=== PATIENT | male | born 1930 | race Caucasian/White ===

== ENCOUNTER → 2016-06-02 | Outpatient (REF) ==
[~2016-06-02] MED LIST: ASPIR-LOW81 MG PO; ASPIRIN E.C. 8181 MG PO; CARDIZEM 60MG T60 MG PO; CENTRUM SILVER1 TA1 PO; ENSURE SUPPLEMENT; FISH OIL CONC1000 MG PO; LEVOTHYROXINE0.1 MG PO; LIPITOR 10MG10 MG PO; LOPRESSOR 225 MG/TAB PO; MONODOX100 PO; NIACIN 250250 MG/CAP PO; NIACIN TIME RE500 MG PO; NIACIN TIME-RE500 MG PO; PLAVIX 75MG TAB75 MG PO; PROSCAR PO; SYNTHROID0.1 MG/TAB PO; [UNRECOGNIZED DRUG - OTHER] PO
== END ==
LOC: ZLAB.WCH 10:45
DX: Z01.89 Encounter for other specified special examinations (principal)

== ENCOUNTER 2020-08-24 12:14 | Day surgery (SDC) | payer MEDICARE, BC ==
[2020-08-24] VITALS (10 sets, daily range): BP systolic 104–166; BP diastolic 55–90; PULSE 61–93; TEMP 97.9
[~2020-08-24] VITALS: Ht 167.6 cm; Wt 68.1 kg
[2020-08-24 13:19] LABS: HEMATOCRIT 39.1 % (42.0-52.0); MEAN CELL VOLUME 96 fl (80.0-100.0); MEAN CORPUSCULAR HEMOGLOBIN 32 pg (27.0-31.0); MEAN CORPUSCULAR HGB CONC 33 g/dl (33.0-37.0); MEAN PLATELET VOLUME 10.8 fl (7.4-10.4); PLATELET COUNT 148 K/mm3 (130-400); RED BLOOD COUNT 4.07 M/mm3 (4.20-5.60); REDCELL DISTRIBUTION WIDTH-CV 12.9 % (11.5-14.5)
[2020-08-24 13:24] LABS: INR 1.2 (0.8-3.0); PROTHROMBIN TIME 13.3 SECONDS (9.7-12.8)
[2020-08-24 13:26] LABS: CALCIUM 8.5 mg/dL (8.4-10.2); CREATININE, serum 1.94 (0.66-1.25); PARTIAL THROMBOPLASTIN TIME 30.2 SECONDS (26.0-37.0); POTASSIUM 4.8 mmol/L (3.4-5.0)
[2020-08-24] MEDS ORDERED: SYNTHROID0.1 MG/TAB PO (13:31)
[2020-08-24] MEDS ORDERED: TOPROL XL 25MG25 MG PO (13:31)
[2020-08-24] MEDS ORDERED: PEPCID40 MG PO (13:32)
[2020-08-24] MEDS ORDERED: COUMADIN 5MG5 MG/TAB PO (13:36)
[2020-08-24] MEDS ORDERED: LIPITOR 10MG10 MG PO (13:36)
[2020-08-24] MEDS ORDERED: NEURONTIN100 MG/CAP PO (13:37)
[2020-08-24] MEDS ORDERED: FLOMAX 0.40.4 MG/CAP PO (13:37)
--- NOTE | 2020-08-24 22:09 | NUR ---
BACK FROM [facility] AT APPROX 1900. PT IS AWAKE AND ALERT, PWD, RESP UNLABORED. TR BAND TO RT WRIST, CMS INTACT. DINNER ORDERED. TELE IMPLEMENTED. WCTM. AT BS.
== END 2020-08-24 22:19 | disposition home or self-care (01) ==
LOC: COL.CAR 12:14
PROVIDERS: Internal Medicine Interventional Cardiology
DX: I25.10 Atherosclerotic heart disease of native coronary artery without angina pectoris (principal); I50.22 Chronic systolic (congestive) heart failure; I11.0 Hypertensive heart disease with heart failure; I48.91 Unspecified atrial fibrillation; I73.9 Peripheral vascular disease, unspecified; E03.9 Hypothyroidism, unspecified; K55.9 Vascular disorder of intestine, unspecified; J43.9 Emphysema, unspecified; E78.5 Hyperlipidemia, unspecified; Z95.818 Presence of other cardiac implants and grafts; Z79.899 Other long term (current) drug therapy; Z79.890 Hormone replacement therapy; Z20.822 Contact with and (suspected) exposure to COVID-19
CPT/HCPCS: C1769; J1644; J1940; J2250; J3010; J7030; Q9967

== ENCOUNTER 2021-10-12 04:27 | Emergency (ER) | payer MEDICARE, BC ==
[~2021-10-12] VITALS: Ht 172.7 cm; Wt 70.5 kg
[~2021-10-12 04:27] MED LIST changes: +COUMADIN 5MG5 MG/TAB PO; +FLOMAX 0.40.4 MG/CAP PO; +NEURONTIN100 MG/CAP PO; +PEPCID40 MG PO; +TOPROL XL 25MG25 MG PO
[2021-10-12 04:33] VITALS: TEMP 98
[2021-10-12 05:04] LABS: BASO % 0.1 % (0.0-2.0); GRAN # 7.9 K/mm3 (1.4-6.5); GRAN % 88.3 % (42.2-75.2); HEMATOCRIT 39.3 % (42.0-52.0); HEMOGLOBIN 13.5 g/dl (13.5-18.0); LYMPH # 0.6 K/mm3 (1.2-3.4); LYMPH % 6.9 % (20.0-51.0); MEAN CELL VOLUME 94 fl (80.0-100.0); MEAN CORPUSCULAR HEMOGLOBIN 32 pg (27-31); MEAN CORPUSCULAR HGB CONC 34 g/dl (33.0-37.0); MEAN PLATELET VOLUME 10.6 fl (7.4-10.4); MONO # 0.4 K/mm3 (0.1-0.6); MONO % 4.4 % (1.7-9.3); PLATELET COUNT 167 K/mm3 (130-400); RED BLOOD COUNT 4.19 M/mm3 (4.20-5.60); REDCELL DISTRIBUTION WIDTH-CV 12.8 % (11.5-14.5)
[2021-10-12 05:24] LABS: ALBUMIN 4.2 gm/dL (3.4-4.8); BILIRUBIN,TOTAL 1.3 mg/dL (0.2-1.2); C-REACTIVE PROTEIN 0.2 mg/dL (0.00-0.50); CALCIUM 8.8 mg/dL (8.4-10.2); CREATININE, serum 2.48 mg/dL (0.72-1.25); POTASSIUM 5.3 mmol/L (3.5-4.5); TOTAL PROTEIN 7.7 gm/dL (6.2-8.1)
[2021-10-12 05:24] LABS: COLLECTION METHOD CATHETER
[2021-10-12 05:29] LABS: PH 6 (5-8); SQUAMOUS EPITHELIAL None Seen /hpf (0-10); URINE APPEARANCE Clear (CLEAR/HAZY); URINE BACTERIA None Seen /hpf (NONE SEEN); URINE BILIRUBIN Negative (NEGATIVE); URINE BLOOD 3+ (NEGATIVE); URINE COLOR Yellow (YELLOW); URINE GLUCOSE Negative (NEGATIVE); URINE KETONE Negative (NEGATIVE); URINE LEUKOCYTE ESTERASE Negative (NEGATIVE); URINE NITRATE Negative (NEGATIVE); URINE PROTEIN(semi-quant) Negative (NEGATIVE); URINE RBC 20-50 /hpf (0-2); URINE UROBILINOGEN Negative (NEGATIVE)
[2021-10-12 07:01] VITALS: BP 141/75; PULSE 68
== END 2021-10-12 07:15 | disposition home or self-care (01) ==
LOC: COL.ER 04:27
PROVIDERS: Emergency Medicine
DX: K59.00 Constipation, unspecified (principal); R33.9 Retention of urine, unspecified; R79.89 Other specified abnormal findings of blood chemistry; Z87.448 Personal history of other diseases of urinary system
CPT/HCPCS: J7040